=== PATIENT | female | born 1950 | race Caucasian/White ===

== ENCOUNTER 2024-07-09 06:15 | Observation (INO) ==
[~2024-07-09 06:15] MED LIST: Metoclopramide 5 MG/ML VIAL (10 mg) IV PRN; NS 0.45% 1000 ml BAG 1,000 ML IV SCH; Naloxone 0.4 mg VIAL 0.4 mg/ml 1 ml VIAL IV PRN
[2024-07-09] MEDS ORDERED: ROPIVACAINE 5 MG/ML 30 ML BTL (0.5%) ONE ×3 (06:30→10:22)
[2024-07-09] MEDS: Scopolamine 1 mg/72hr PATCH TRANSDERM ONE (06:43)
[2024-07-09] MEDS: Buffered Lidocaine 1% SYRIN 1 ml INTRADERM ONE (06:43)
[2024-07-09] MEDS ORDERED: ceFAZolin 2 GM PREMIX 2 GM/50 ML BAG ONE (06:47)
[2024-07-09] MEDS ORDERED: Tranexamic Acid 1 GM/100ML BAG 2,000 MG/200 ML BAG IV ONE (06:47)
[2024-07-09 06:56] LABS: Rapid COVID-19 Molecular Undetected (Undetected)
[2024-07-09] MEDS ORDERED: Lidocaine 2% PF 5 ML VIAL ONE ×2 (06:58→08:00)
[2024-07-09] MEDS ORDERED: Propofol 10 MG/ML 20 ML BTL ONE ×2 (06:58→08:05)
[2024-07-09] MEDS ORDERED: KETAMINE HCL 10 MG/ML 20 ml VIAL (200 MG) ONE (07:00)
[2024-07-09] MEDS: Acetaminophen IV 1 GM/100ML 1,000 MG/100 ML BAG IV ONE (07:09)
[2024-07-09] MEDS: Lactated Ringers 1000 ml BAG 1,000 ML IV SCH ×2 (07:09→13:30)
[2024-07-09] MEDS ORDERED: Midazolam 2 mg/2 ml VIAL 1 mg/ml 2 ml VIAL (2 mg) ONE (08:00)
[2024-07-09] MEDS ORDERED: fentaNYL 100 mcg/2 ml 50 MCG/ML VIAL ONE ×3 (08:00→12:53)
[2024-07-09] MEDS ORDERED: Rocuronium 50 mg VIAL 10 mg/ml 5 ml VIAL (50 mg) ONE (08:04)
[2024-07-09] MEDS ORDERED: fentaNYL 250 mcg/5 ml 50 MCG/ML 5 ml VIAL (250 MCG) ONE (08:07)
[2024-07-09] MEDS ORDERED: Ondansetron 4 mg VIAL 2 MG/ML 2 ml VIAL ONE (09:06)
[2024-07-09] MEDS ORDERED: Dexamethasone IV 4 MG/ML VIAL 1 ml VIAL ONE (09:06)
[2024-07-09] MEDS ORDERED: Magnesium Hydroxide LIQ 30 ML UDC PO PRN (10:07)
[2024-07-09] MEDS ORDERED: Calcium Carb (TUMS) 500 mg CHEW TAB PO PRN (10:07)
[2024-07-09] MEDS ORDERED: Morphine 2 MG/ML SYRINGE IV PRN (10:07)
[2024-07-09] MEDS ORDERED: Ondansetron ODT 4 mg TAB 4 MG TAB PO PRN (10:07)
[2024-07-09] MEDS ORDERED: Lactulose 30 ml UDC PO PRN (10:07)
[2024-07-09] MEDS: fentaNYL 100 mcg/2 ml 50 MCG/ML VIAL IV PRN (11:58)
[2024-07-09] MEDS: Ondansetron 4 mg VIAL 2 MG/ML 2 ml VIAL IV PRN (13:54)
[2024-07-09] MEDS: ceFAZolin 2 GM PREMIX 2 GM/50 ML BAG IV SCH (17:39)
[2024-07-09] MEDS: Omeprazole 20 mg CAP (NF) PO SCH (20:54)
[2024-07-09] MEDS: Magnesium Hydroxide LIQ 30 ML UDC PO SCH (20:55)
[2024-07-10] MEDS: Ondansetron 4 mg VIAL 2 MG/ML 2 ml VIAL IV PRN (01:12)
[2024-07-10 06:48] LABS: Hematocrit 30.5 % (35-45); Hemoglobin 10.6 g/dL (11.5-14.3); Mean Platelet Volume 8.2 fL (7.5-11.2); Platelet Count 219 10^3/uL (150-450)
[2024-07-10] MEDS: Vitamin THERAPEUTIC TAB PO SCH (07:50)
[2024-07-10 08:42] LABS: Calcium 8.3 mg/dL (8.6-10.3); Creatinine, Serum 1.09 mg/dL (0.51-0.95); Potassium 3.5 mmol/L (3.5-5.0); eGFR CKD-EPI 52.7 (>60)
[2024-07-10 11:04] VITALS: BP 120/70
== END 2024-07-10 12:15 | disposition home or self-care (01) ==
LOC: SSU 06:15 → OR 06:15
PROVIDERS: ADMIT Orthopaedic Surgery Adult Reconstructive Orthopaedic Surgery; ATTEND Orthopaedic Surgery Adult Reconstructive Orthopaedic Surgery